=== PATIENT | female | born 1970 | race Caucasian/White ===

== ENCOUNTER 2017-06-03 11:55 | Emergency (ER) | payer BC ==
[~2017-06-03] VITALS: Ht 154.9 cm; Wt 83.4 kg
[~2017-06-03 11:55] MED LIST: ORPH100T2 PO; PRED20 PO; TRAM50TA PO
[2017-06-03 12:10] VITALS: BP 206/112; PULSE 96; RESP 16; TEMP 99.7; O2SAT 98
[2017-06-03] MEDS ORDERED: KETOROLAC TROMETHAMINE 30 MG/ML (IVP) VIAL IV PUSH ONE (13:00)
--- NOTE | 2017-06-03 13:13 | PD ---
HPI Chief Complaint: Abdominal Pain Time Seen by Provider: 12:44 Travel History International Travel<30 days: No Contact w/Intl Traveler<30days: No Traveled to known affect area: No History of Present Illness HPI 46-year-old female states she's been having upper abdominal pain for the past couple of months. She states she has not seen a physician for this yet. She states she also feels nauseous. She states earlier she had a migraine but that has resolved. She denies any other concurrent complaints. Quality is sharp. Severity is moderate. She denies specific modifying factors. Duration is couple of months. She denies migration of the pain. She states her last menstrual cycle was at the beginning of this month and regular. PFSH Past Medical History Cardiovascular Problems: Yes (hx of htn not on meds) Diabetes: Yes Patient Takes Glucophage: No Diminished Hearing: No Tetanus Vaccination: < 5 Years Influenza Vaccination: No ?: Not LMP: 05/08/17 Tubal Ligation: Yes Past Surgical History Surgical History: No Previous Surgery Social History Alcohol Use: Yes Tobacco Use: Yes Substance Use: No Allergies-Medications (Allergen,Severity, Reaction): Coded Allergies: No Known Allergies (Unverified Adverse Reaction, Unknown, 06/03/17) Reported Meds & Prescriptions Reported Meds & Active Scripts Active Review of Systems Except as stated in HPI: all other systems reviewed are Neg Physical Exam Narrative GENERAL: 46-year-old female in no apparent distress SKIN: Focused skin assessment warm/dry. HEAD: Atraumatic. Normocephalic. EYES: Pupils equal and round. No scleral icterus. No injection or drainage. ENT: No nasal bleeding or discharge. Mucous membranes pink and moist. NECK: Trachea midline. CARDIOVASCULAR: Regular rate and rhythm. RESPIRATORY: No accessory muscle use. Clear to auscultation. Breath sounds equal bilaterally. GASTROINTESTINAL: Abdomen soft, non-tender, nondistended. MUSCULOSKELETAL: No obvious deformities. No clubbing. No cyanosis. No edema. NEUROLOGICAL: Awake and alert. No obvious cranial nerve deficits. Motor grossly within normal limits. Normal speech. PSYCHIATRIC: Appropriate mood and affect; insight and judgment normal. Data Data Last Documented VS Vital Signs Date Time Temp Pulse Resp B/P (MAP) Pulse Ox O2 Delivery O2 Flow Rate FiO2 06/03/17 14:15 68 20 158/88 (111) 99 Room Air 06/03/17 12:10 99.7 Orders Orders Complete Blood Count With Diff (06/03/17 12:52) Comprehensive Metabolic Panel (06/03/17 12:52) Urinalysis - C+S If Indicated (06/03/17 12:52) Lipase (06/03/17 12:52) Iv Access Insert/Monitor (06/03/17 12:52) Ed Urine Pregnancytest Poc (06/03/17 12:52) Ketorolac Inj (Toradol Inj) (06/03/17 13:00) Ed Discharge Order (06/03/17 14:19) Labs Laboratory Tests Test 06/03/17 13:00 White Blood Count 7.7 TH/MM3 Red Blood Count 4.69 MIL/MM3 Hemoglobin 10.9 GM/DL Hematocrit 34.0 % Mean Corpuscular Volume 72.5 FL Mean Corpuscular Hemoglobin 23.4 PG Mean Corpuscular Hemoglobin Concent 32.3 % Red Cell Distribution Width 18.6 % Platelet Count 391 TH/MM3 Mean Platelet Volume 8.2 FL Neutrophils (%) (Auto) 79.9 % Lymphocytes (%) (Auto) 12.3 % Monocytes (%) (Auto) 5.9 % Eosinophils (%) (Auto) 1.5 % Basophils (%) (Auto) 0.4 % Neutrophils # (Auto) 6.2 TH/MM3 Lymphocytes # (Auto) 0.9 TH/MM3 Monocytes # (Auto) 0.5 TH/MM3 Eosinophils # (Auto) 0.1 TH/MM3 Basophils # (Auto) 0.0 TH/MM3 CBC Comment AUTO DIFF Differential Comment AUTO DIFF CONFIRMED Urine Collection Type CLEAN CATCH Urine Color YELLOW Urine Turbidity CLEAR Urine pH 5.0 Urine Specific [place] 1.010 Urine Protein NEG mg/dL Urine Glucose (UA) NEG mg/dL Urine Ketones NEG mg/dL Urine Occult Blood TRACE Urine Nitrite NEG Urine Bilirubin NEG Urine Urobilinogen 0.2 MG/DL Urine Leukocyte Esterase NEG Urine Squamous Epithelial Cells > 8 /hpf Urine Amorphous Sediment MOD Microscopic Urinalysis Comment CULT NOT INDICATED Urine Collection Time 1310 Blood Urea Nitrogen 10 MG/DL Creatinine 0.55 MG/DL Random Glucose 89 MG/DL Total Protein 7.6 GM/DL Albumin 3.5 GM/DL Calcium Level 8.5 MG/DL Alkaline Phosphatase 76 U/L Aspartate Amino Transf (AST/SGOT) 15 U/L Alanine Aminotransferase (ALT/SGPT) 19 U/L Total Bilirubin 0.2 MG/DL Sodium Level 137 MEQ/L Potassium Level 3.7 MEQ/L Chloride Level 108 MEQ/L Carbon Dioxide Level 22.6 MEQ/L Anion Gap 6 MEQ/L Estimat Glomerular Filtration Rate 120 ML/MIN Lipase 185 U/L MDM Medical Decision Making Medical Screen Exam Complete: Yes Emergency Medical Condition: Yes Medical Record Reviewed: Yes (past history confirmed) Interpretation(s) CBC & BMP Diagram 06/03/17 13:00 Total Protein 7.6, Albumin 3.5, Calcium Level 8.5, Alkaline Phosphatase 76, Aspartate Amino Transf (AST/SGOT) 15, Alanine Aminotransferase (ALT/SGPT) 19, Total Bilirubin 0.2 Differential Diagnosis Reflux, pancreatitis, gastritis Narrative Course Will check blood work, urinalysis and dose with Toradol and reevaluate Patient with mild anemia without prior for comparison, advised to follow this with primary.Patient denies any new complaints and states that they are feeling better. Patient happy with care, all questions answered. Patient knows that follow up is incumbent on them and to return to the emergency room immediately if new or worsening symptoms develop. Patient given strict return precautions, vitals reviewed and are normal, agrees to further workup as an outpatient. Diagnosis Primary Impression: Abdominal pain Qualified Codes: R10.9 - Unspecified abdominal pain Patient Instructions: General Instructions Additional Instructions: tylenol as needed, follow with primary, return as needed Med/Other Pt SpecificInfo: No Change to Meds Disposition: 01 DISCHARGE HOME Condition: Stable Lucia Lee MD Jun 03, 2017 13:13
[2017-06-03 13:27] LABS: AUTOMATED NEUTROPHIL # 6.2 TH/MM3 (1.8-7.7); BASOPHIL % 0.4 % (0.0-2.0); BILIRUBIN, URINE NEG (NEG); BLOOD, URINE TRACE (NEG); EOSINOPHIL # 0.1 TH/MM3 (0-0.4); EOSINOPHIL % 1.5 % (0.0-4.0); GLUCOSE,URINE NEG (NEG); HEMOGLOBIN 10.9 GM/DL (11.6-15.3); KETONE, URINE NEG (NEG); LYMPH % 12.3 % (9.0-44.0); LYMPHOCYTE # 0.9 TH/MM3 (1.0-4.8); MEAN CELL VOLUME 72.5 FL (80.0-100.0); MEAN CORPUSCULAR HEMOGLOBIN 23.4 PG (27.0-34.0); MEAN CORPUSCULAR HGB CONC 32.3 % (32.0-36.0); MEAN PLATELET VOLUME 8.2 FL (7.0-11.0); MONO % 5.9 % (0.0-8.0); MONOCYTE # 0.5 TH/MM3 (0-0.9); NEUT % 79.9 % (16.0-70.0); NITRITE,URINE NEG (NEG); PLATELET COUNT 391 TH/MM3 (150-450); RED BLOOD COUNT 4.69 MIL/MM3 (4.00-5.30); RED CELL DISTRIBUTION WIDTH 18.6 % (11.6-17.2); URINE COLOR YELLOW (YELLW/STRAW); URINE LEUKOCYTE ESTERASE NEG (NEG); WHITE BLOOD COUNT 7.7 TH/MM3 (4.0-11.0)
[2017-06-03 13:40] LABS: CHLORIDE 108 MEQ/L (98-107); SODIUM (NA) 137 MEQ/L (136-145)
[2017-06-03 13:44] LABS: ALBUMIN 3.5 GM/DL (3.4-5.0); BICARBONATE 22.6 MEQ/L (21.0-32.0); CALCIUM 8.5 MG/DL (8.5-10.1); GLUCOSE,RANDOM 89 MG/DL (74-106)
[2017-06-03 13:45] LABS: BLOOD UREA NITROGEN 10 MG/DL (7-18)
[2017-06-03 13:47] LABS: ALT (GPT) 19 U/L (10-53); AST (GOT) 15 U/L (15-37); CREATININE 0.55 MG/DL (0.50-1.00); GLOMERULAR FILTRATION RATE 120 ML/MIN (>89)
[2017-06-03 13:49] LABS: TOTAL BILIRUBIN ADULT 0.2 MG/DL (0.2-1.0); TOTAL PROTEIN 7.6 GM/DL (6.4-8.2)
[2017-06-03 13:50] LABS: ALKALINE PHOSPHATASE 76 U/L (45-117)
[2017-06-03 14:02] LABS: AMORPHOUS SEDIMENT, URINE MOD; SQUAMOUS EPITHELIAL CELL URINE > 8 /hpf (0-5)
[2017-06-03 14:15] VITALS: BP 158/88; PULSE 68; RESP 20; O2SAT 99
== END 2017-06-03 15:13 | disposition home or self-care (01) ==
LOC: PHED 11:55
DX: R10.10 Upper abdominal pain, unspecified (principal); D64.9 Anemia, unspecified; E11.9 Type 2 diabetes mellitus without complications; I10 Essential (primary) hypertension; Z72.0 Tobacco use
CPT/HCPCS: 80053; 81001; 83690; 84703; 85025; 96374; 99284; J1885